=== PATIENT | male | born 1955 | race Caucasian/White ===

== ENCOUNTER 2021-05-26 08:51 | Outpatient (CLI) | payer OTHER, SELFPAY ==
--- NOTE | ~2021-05-26 | CT_ITS ---
EXAMINATION: CT LE RT wo con DATE: 05/26/2021 09:18 INDICATION: Unilateral primary osteoarthritis of the right knee TECHNIQUE: High resolution computed tomography (CT) of the right lower extremity from the hip through the ankle was performed without intravenous contrast. Additional sagittal and coronal reconstruction s were performed. Automated exposure control and iterative reconstruction technique were employed. Th e dose-length product was 1851.50 mGy-cm. COMPARISON: None FINDINGS: Alignment is normal. No fracture. Mild right hip osteoarthritis with small marginal osteophytes and m ild subarticular cystic change along the lateral rim of the acetabulum. There is cystic change at the anterosuperior right femoral head neck junction where there is decreased offset which can be seen in the setting of cam-type femoral acetabular impingement. Additional mild osteoarthritis at the tibiot alar and subtalar joints with subarticular cystic changes along the lateral rim of the talar dome. Severe osteoarthritis in the medial compartment of the right knee with subarticular sclerosis and sug gestion of early remodeling of the medial tibial plateau and weightbearing medial femoral condyle. Sm all marginal osteophytes about the lateral and patellofemoral compartments. Moderate-sized right knee joint effusion collecting primarily in the medial gutter of the suprapatellar pouch. Similar loose o steochondral body within a 6.1 x 3.5 x 1.8 cm Richardson's cyst. A couple additional loose osteochondral b odies measuring up to 11 mm in maximal diameter in the recess along the posterior margin of the poste rior cruciate ligament. There is an additional 2.6 x 2.3 x 1.1 cm ganglion cyst extending superiorly from the intercondylar notch to the deep aspect of the popliteal fossa. Multiple diverticula along the visualized sigmoid colon without adjacent from 3 change to suggest div erticulitis. No pathologically enlarged lymphadenopathy at the right groin or visualized right hemipe lvis. Postoperative change of prior right inguinal hernia repair. IMPRESSION: 1. Tricompartmental osteoarthritis at the right knee, severe in the medial compartment. Reviewed, dictated and finalized at location B. IMPRESSION: 1. Tricompartmental osteoarthritis at the right knee, severe in the medial comp artment.
== END 2021-05-26 08:52 | disposition home or self-care (01) ==
LOC: ANHIMG 08:59
PROVIDERS: Visit Provider Orthopaedic Surgery
DX: M17.11 Unilateral primary osteoarthritis, right knee (principal)
CPT/HCPCS: 73700

== ENCOUNTER 2021-06-05 09:29 | Outpatient (CLI) | payer OTHER, SELFPAY ==
--- NOTE | 2021-06-05 09:48 | ECG_ITS ---
Measurements Intervals [place] Rate: 70 P: 59 NM: 168 QRS: 5 QRSD: 98 T: 35 QT: 343 QTc: 372 Interpretive Statements SINUS RHYTHM NORMAL ECG NO PREVIOUS ECG AVAILABLE FOR COMPARISON Electronically Signed On 06-05-2021 16:56:16 CDT by Marcin Encarnacion M.D.
[2021-06-05 09:57] LABS: Hematocrit 44.2 % (42.0-52.0); Hemoglobin 15.1 g/dL (14.0-18.0)
[2021-06-05 10:06] LABS: Urine Cotinine NEGATIVE
[2021-06-05 10:10] LABS: Albumin Level 4.1 g/dL (3.5-5.1); Estimated Glomerular Filt Rate > 60; Glucose 105 mg/dL (65-110)
[2021-06-05 10:23] LABS: Hemoglobin A1C 5.8 % (<5.7)
== END 2021-06-05 09:30 | disposition home or self-care (01) ==
LOC: ANHLAB 09:32
PROVIDERS: Visit Provider Orthopaedic Surgery
DX: M17.11 Unilateral primary osteoarthritis, right knee (principal); Z01.818 Encounter for other preprocedural examination
CPT/HCPCS: 80307; 82040; 82565; 82947; 83036; 85014; 85018; 93005

== ENCOUNTER 2021-08-04 11:34 | Outpatient (CLI) | payer OTHER, SELFPAY ==
[2021-08-04 12:57] LABS: Basophils Percent Auto 0.5 % (0.2-1.2); Eosinophils Absolute Auto 0.1 K/mm3 (0-0.3); Eosinophils Percent Auto 2.5 % (0-4.4); Hematocrit 40.6 % (42.0-52.0); Hemoglobin 14.1 g/dL (14.0-18.0); Immature Granulocyte Absolute 0.01 K/mm3 (0.00-0.031); Immature Granulocyte Percent A 0.2 % (0-0.5); Lymphocytes Absolute Auto 1.81 K/mm3 (0.9-3.2); Lymphocytes Percent Auto 31.7 % (18.3-44.2); Mean Corpuscular HGB Conc 34.7 g/dl (32-36); Mean Corpuscular Hemoglobin 32.6 pg (26-34); Mean Platelet Volume 9.6 fl (7.4-10.4); Monocytes Absolute Auto 0.6 K/mm3 (0.1-0.6); Monocytes Percent Auto 10.3 % (2.6-8.5); Neutrophils Absolute Auto 3.1 K/mm3 (1.3-6.7); Neutrophils Percent Auto 54.8 % (45.5-73.1); Platelet Count Result 272 k/mm3 (150-375); Red Blood Count 4.32 M/mm3 (4.6-6.20); Red Cell Distribution Width 13.2 % (11.5-14.5); White Blood Count 5.7 K/mm3 (4.5-10.0)
[2021-08-04 13:10] LABS: Urine Cotinine NEGATIVE
[2021-08-04 13:11] LABS: Albumin Level 4.2 g/dL (3.5-5.1); Estimated Glomerular Filt Rate > 60; Glucose 97 mg/dL (65-110)
== END 2021-08-04 11:35 | disposition home or self-care (01) ==
PROVIDERS: Visit Provider Orthopaedic Surgery
DX: Z01.812 Encounter for preprocedural laboratory examination (principal); M17.11 Unilateral primary osteoarthritis, right knee; Z51.81 Encounter for therapeutic drug level monitoring; Z79.899 Other long term (current) drug therapy
CPT/HCPCS: 80307; 82040; 82565; 82947; 85025; 87081

== ENCOUNTER 2021-08-26 01:03 | Day surgery (SDC) | payer OTHER, SELFPAY ==
[2021-08-04 11:50] VITALS: BMI 26.2
--- NOTE | 2021-08-04 12:03 | PC.NURSE ---
Report to the Outpatient Waiting Room, entrance under the green pavilion located off [facility], at time __8:30AM on date ___08/26/21____. OR Time: __10:30AM . - You and your visitor will be asked a series of questions to screen for COVID 19 for your protection. - Only one visitor is allowed at this time. - The patient visitor is requested to leave or wait in car when not with patient. - A mask is required within the hospital. Patients may have clear liquids (water, carbonated beverages, clear teas, apple juice) until 3 hours prior to surgery with a maximum of 20 ounces. - No food from midnight until time of surgery - Infants may have breast milk until 4 hours before surgery, formula 6 hours prior to surgery. - Children will be allowed to drink immediately following surgery. If applicable, please bring a bottle or sippy cup to assist with drinking. Juice, water, soda, and popsicles are readily available. For infants on formula, please bring formula the day of surgery. Pacifiers are allowed. Take the following medications with a SIP of water the morning of surgery: ___NONE Medications to discontinue per physician ___HOLD IBUPROFEN 7 DAYS PRE-OP Date to take last dose____08/19/21 Please no make-up, nail yi, hairspray, perfume, deodorant, or body powder the day of surgery. No jewelry (including any body piercings) or valuables the day of surgery, leave them at home. Please take a shower or bath the night before, or the morning of, surgery with an antibacterial soap. Wear comfortable, loose fitting clothing. Children are encouraged to wear pajamas. - Jewelry must be removed prior to entering the operating room. Rings and piercings that are not removed may be cut off. - The hospital will not accept responsibility for valuables. - Please leave all valuables, including medications, at home the day of surgery. If you are going home after surgery, a licensed bull driver must drive you home. - NO public transportation without another adult. - We recommend that an adult stay with you for 24 hours following discharge. - We also recommend that you do not drive, make important decision, drink alcoholic beverages, or take any drugs that were not prescribed by your health care provider for at least 24 hours after your discharge time. For Pediatric surgeries, we recommend two adults accompany the child home (only one inside the building at this time). Follow any additional instructions given to you from your surgeon. If you or anyone in your household have experienced Covid symptoms in the past week, please notify your surgeon or the nurse liaison at the phone number below for possible testing. Telephone instructions given to __PATIENT and asked if any additional questions and then verbalized understanding. Patient advised to call surgeon office or pre surgery nurse liaison [phone] if any additional questions.
[2021-08-26] VITALS (12 sets, daily range): BP systolic 111–144; BP diastolic 70–97; PULSE 63–88; RESP 10–21; TEMP 36.3–37.1; O2SAT 95–99
--- NOTE | ~2021-08-26 | XR_ITS ---
EXAM: XR knee RT 2V DATE: 08/26/2021 13:49 HISTORY: RT TOTAL KNEE . COMPARISON: 04/23/2021. FINDINGS: Interval right knee total arthroplasty. Expected postsurgical changes in the soft tissues. Hardware in good position. No unexpected radiopaque foreign body. No osseous fracture. IMPRESSION: No radiographic evidence of procedure or hardware related complication. Reviewed, dictated and finalized at location K. IMPRESSION: No radiographic evidence of procedure or hardware related complicat ion.
--- NOTE | 2021-08-26 07:03 | WPDHPUPDATE1 ---
History and Physical Update Update Date/Time: 08/26/21 07:03 History and Physical has been reviewed, including an updated exam of the patient. There are NO changes in the patient's condition. Risks, benefits, and alternatives have been discussed and questions answered. Patient agrees to proceed with procedure.
[2021-08-26] MEDS: ACETAMINOPHEN 500 MG TABLET 1000 MG PO (08:30)
[2021-08-26] MEDS: LACTATED RINGERS 1,000 ML 30 ML IV CONT ×2 (08:42→13:18)
--- NOTE | 2021-08-26 08:43 | WPDANESEPPF ---
Anes - Initial Pre Proc Eval Procedure: Operation Date: 08/26/21 10:30 Proposed Procedures p Right Custom Total Knee Arthroplasty - Alton Frey MD Date/Time: 08/26/21 08:43 Surgeon: Alton Frey MD Pre Op Diagnosis: primary OA right knee Patient Data Age: 66 Gender: M Height: 1.88 m Weight: 92.7 kg Allergies Allergy/AdvReac Type Severity Reaction Status Date / Time atorvastatin AdvReac Unknown Muscle & Verified 08/26/21 08:23 joint pain Home Medications Medication Instructions Recorded Confirmed Type ibuprofen 200 mg capsule 400 mg PO Q6H PRN Pain 08/04/21 08/26/21 History ECG: Date of Service: 06/05/21 Procedure(s): CA 12 lead EKG Accession Number(s): [id number] cc: ~ ? Measurements Intervals? [place]? Rate: ? 70 ? P:? 59 ME: ? 168? QRS:? 5 QRSD: ? 98 ? T:? 35 QT: ? 343? QTc:? 372? Interpretive Statements SINUS RHYTHM NORMAL ECG NO PREVIOUS ECG AVAILABLE FOR COMPARISON Electronically Signed On 06-05-2021 16:56:16 CDT by Marcin Encarnacion M.D. Patient hx anesthesia problems: none Family hx anesthesia problems: none Results Review: All pre-operative results and documents have been reviewed as part of the pre-operative evaluation. [facility] Past Medical History Medical History (Updated 08/26/21 @ 08:44 by Eliel Jones MD) Bilateral primary osteoarthritis of knee Chronic GERD Former smoker Hyperlipidemia Surgical History Surgical History History of hernia surgery (~07/2017) History of sinus surgery (~07/2014) Family History Family History Mother Patient's mother is in good health Father Patient's father is in good health Sibling Patient's sister is in good health Other Family history of allergic disorder Family history of malignant neoplasm Social History Social History Smoking packs per day: 1 Smoking cigarettes per day: 20.0 Years smoked: 15 Smoking pack-years: 15.00 Smoking status: Former smoker Tobacco type: cigarettes Smoking end date: 08/23/91 Alcohol intake: current Drinks per week: 6 Substance use: never Living arrangements: with family Additional living arrangements comments: SPOUSE Spiritual care concerns: No Anes - Eval Final PreProcedure Day of Procedure 08/26/21 08:43 Patient weight: normal Heart: regular rate and rhythm Lungs: clear to auscultation and normal air movement Airway: Mallampati scale class II Neurological: alert and oriented Last oral intake: >/= 8 hours ASA classification: II Emergent: no Anesthetic plan: proceed Anesthesia type and monitoring: general LMA Results Review: All pre-operative results and documents have been reviewed as part of the pre-operative evaluation. Informed Consent: The patient's anesthetic plan and its attendant risks and benefits were discussed with the patient/family/POA. Questions were solicited and answers provided to the satisfaction of the patient/family/POA.
[2021-08-26] MEDS: TRANEXAMIC ACID 1,000MG/ISO100 1,000 MG/100 ML BAG 200 MG IVPB (09:40)
[2021-08-26] MEDS: ceFAZolin 2 GM/D5W 50 ML 2 GM/50 ML BAG IVPB ×2 (10:37→18:13)
--- NOTE | 2021-08-26 10:37 | WPDANESPNB ---
Anes - Peripheral Nerve Block Date/Time: 08/26/21 10:37 I have discussed with the patient/family/POA the placement of a peripheral nerve block for post-operative pain management, including associated risks, benefits, complications, and side effects. Alternative methods of post-operative analgesia were detailed. Questions were solicited and answers provided to the satisfaction of the patient/family/POA. Time-Out: A pre-procedural Time-Out was completed immediately before starting the procedure and confirmed: Patient Identification, Site, Procedure, Patient Position and the Availability of Requisite Equipment. Clinical Indications: Acute post-operative pain management requested by the operative surgeon. Nerve Block Insertion Note Anes-nerve block: adductor canal Patient position: supine Skin prep: chlorhexidine Needle: 22 gauge, stimulating, insulated echogenic needle. Needle length: 80 mm Technique: ultrasound Technique comment: in plane Injectate: bupivacaine 0.5% with epi 5 mcg/ml (30cc) Observations: tolerated well Complications: none Procedure start time:: 1025 Procedure end time:: 1030
[2021-08-26] MEDS: fentaNYL CITRATE INJ (*CRX) 100 MCG/2 ML VIAL 25 MCG IV PUSH ×8 (13:50→14:51)
--- NOTE | 2021-08-26 14:05 | SUR.PHASEI ---
1345 PORTABLE XRAY OF RIGHT KNEE DONE.
[2021-08-26] MEDS: oxyCODONE HCL (*CRX) 5 MG TAB IR PO (15:32)
[2021-08-26] MEDS: SODIUM CHLORIDE 0.9% IV 1,000 ML 125 ML IV CONT (15:33)
[2021-08-26] MEDS: ASPIRIN 81 MG ENTERIC TABLET PO (17:32)
[2021-08-26] MEDS: SENNA/DOCUSATE SODIUM TABLET 2 TAB PO (17:32)
--- NOTE | 2021-08-26 17:39 | ADMGEN ---
This patient, Usman Finney, was admitted to Medical Room 257-01. Patient/family oriented to hospital policies and general routines including ID bracelet, bed and alarms, visiting hours, pain management, procedures, bathroom and other care routines, personal items, smoking policy, room service/diet, and visiting hours. Information on how to activate the Rapid Response Team has been discussed. Patient/Family are encouraged to report perceived risks to care and to ask questions if they do not understand what they are told or what they should do.
[2021-08-26] MEDS: oxyCODONE HCL (*CRX) 5 MG TAB IR 10 MG PO (19:48)
[2021-08-26] MEDS: FAMOTIDINE 20 MG TABLET PO (19:49)
[2021-08-27 00:29] VITALS: BP 107/55; PULSE 83; RESP 20; TEMP 36.5; O2SAT 95
[2021-08-27] MEDS: ceFAZolin 2 GM/D5W 50 ML 2 GM/50 ML BAG IVPB ×2 (02:00→10:38)
[2021-08-27 04:24] VITALS: BP 112/60; PULSE 61; RESP 18; TEMP 36.7; O2SAT 96
[2021-08-27] MEDS: FAMOTIDINE 20 MG TABLET PO (08:15)
[2021-08-27] MEDS: ASPIRIN 81 MG ENTERIC TABLET PO (08:16)
[2021-08-27] MEDS: polyethylene glycoL 3350 17 GM POWD.PACK PO (08:16)
[2021-08-27] MEDS: SENNA/DOCUSATE SODIUM TABLET 2 TAB PO (08:16)
[2021-08-27] MEDS: predniSONE 5 MG TABLET PO (08:16)
[2021-08-27 09:48] VITALS: BP 115/64; PULSE 64; RESP 16; TEMP 36.3; O2SAT 96
--- NOTE | 2021-08-27 10:12 | P.OP_ITS ---
Procedure Note - Detailed Date of Procedure 08/26/21 Pre-op Diagnosis primary OA right knee Post-op Diagnosis Same Procedure Performed Total knee arthroplasty Surgeon Alton Frey MD Aviation Support Equipment Repairer Gavi Covarrubias PA-C Anesthesia General and Regional (Subsartorial block.) Findings Custom TKA. Excellent bone quality. Severe varus with constitutional varus. Medial tibial erosion. Minus two tibial cut. Moderate to large medial release. Asymmetric tibial polyethylene. Description of Procedure Preoperative antibiotics were given. The limb was prepped and draped in the usual sterile fashion with a well-padded tourniquet high on the thigh. The limb was exsanguinated and the tourniquet inflated to 300 mmHg. A longitudinal incision was created just medial to the patella. A trivector approach to the knee was performed. Arthrotomy was taken down through the joint capsule. No significant releases were initially taken. The femur was exposed and the F1 jig was applied. The coring tool was used to remove the cartilage for the F2 jig to sit flush with the bone. The jig was pinned and the distal cut carefully taken. Caliper measurements confirmed appropriate bony resections according to the preoperative templated plan. The F4 cutting jig for the femur was applied, at the standard rotation. The AP and anterior chamfer cuts were taken. The F5 jig was applied and the posterior chamfer cuts were taken. The tibia was prepared using the T1 jig, after removing cartilage for the jig contact points. Proper alignment was checked with the alignment ángel. The tibia was cut using the T1u guide. Gap balancing was performed. Gap measurements were taken and the knee was trialed. Excellent alignment and soft tissue balancing was confirmed. The posterior cruciate ligament was recessed along the proximal tibia. Meniscal remnants were removed. The trial components were assembled. Excellent range of motion and proper soft tissue balancing were confirmed throughout the full range of motion. Patellar tracking was excellent. The knee was copiously irrigated periodically throughout the procedure. The real implants were cemented into position. Excess cement was carefully removed. The wound was closed in layers with interrupted #1 Vicryl suture, 2-0 strata fix suture, 0 strata fix suture, 2-0 strata fix suture. Steri-Strips placed on the skin with the knee flexed. Sterile bulky dressing applied. The patient was brought to the recovery room in stable condition. There were no complications. Physician personalized living assistant, Gavi Covarrubias PA-C, required for surgery; including patient positioning, draping, tissue retraction, maintaining instrument position, cement removal, wound closure, and dressing placement. Implants Conformis Custom total knee arthroplasty. Cemented. Cruciate retaining. 6D insert. Estimated Blood Loss -100.0 Urine Output 600 Drains No Packing No Pathology None sent Complications No immediate complications Condition Stable Disposition PACU [facility] Billing Surgery - Charge Forward: Surgery Billing
--- NOTE | 2021-08-27 10:27 | WPDANESPN ---
Anes - Prog Note Post-Op Date/Time: 08/27/21 10:27 Cardiovascular status: normal Respiratory status: normal Airway patency: baseline Mental status: baseline Post-Op hydration status: normal Vital Signs: Last Vital Signs Temp 36.3 C L 08/27/21 09:48 Pulse 64 08/27/21 09:48 Resp 16 08/27/21 09:48 BP 115/64 08/27/21 09:48 Pulse Ox 96 08/27/21 09:48 O2 Del Method Room Air 08/27/21 08:00 O2 Flow Rate 8 08/26/21 13:45 Pain Score (VAS): 0 I/O: Intake & Output 08/26/21 08/27/21 08/27/21 23:59 07:59 15:59 Intake Total 1040 540 360 Output Total 600 600 Balance 1040 -60 -240 Post-procedural complaints: none Patient Feedback: Patient satisfied with anesthetic care.
[2021-08-27] MEDS: IBUPROFEN 200 MG TABLET 400 MG PO (10:37)
--- NOTE | 2021-08-27 14:33 | PM.DS ---
DS: Admitting Diagnosis Discharge Date 08/27/21 Admitting Diagnosis Knee arthritis DS: Discharge Diagnosis Discharge Diagnosis (1) Status post total knee replacement, right: Code(s): Z96.651 - Presence of right artificial knee joint Status: Acute DS: Summary Hospital Course Reason for hospitalization: Total knee arthroplasty. Hospital Course: Tolerated surgery well. Progressed appropriately with therapy. Status at Discharge Functional status at discharge: uses cane/walker Overall status at discharge: patient is progressing back to baseline Time Spent with Patient Time attestation: Total time spent providing and/or coordinating discharge services: Exam Const: General: no acute distress Resp: Effort & Inspection: normal respiratory effort Skin: Other: Wound healing well. Mepilex dressing intact. No hematoma or drainage. Neuro: Motor exam (neuro): 5/5 motor strength present throughout Sensory Exam: normal sensation Psych: Mental Status: mental status grossly normal Speech and movement: Normal speech and movement present Discharge Plan Discharge Patient Disposition: Home, Self-Care Discharge Instructions: See instruction sheet. Stand Alone Forms: General Discharge Instructions Follow-up/Referrals: Alton Frey MD [Physician] - Discharge Medications: New aspirin [Enteric Coated Aspirin] 81 mg tablet,delayed release (DR/EC) 81 mg PO DAILY Qty: 28 0RF oxycodone-acetaminophen 5-325 mg tablet 1 - 2 tablet PO Q4-6H MDD 6 tablets PRN (Reason: pain) Qty: 30 0RF prednisone 5 mg tablet 5 mg PO DAILY Qty: 21 0RF Discontinued ibuprofen 200 mg Capsule 400 mg PO Q6H PRN (Reason: Pain) Quality VTE Prophylaxis VTE prophylaxis: mechanical ordered (LING etienne and [place])
== END 2021-08-27 14:30 | disposition home or self-care (01) ==
LOC: ANHSURGERY 08:06 → ANH2MED 14:56
PROVIDERS: Visit Provider Orthopaedic Surgery
PROC: (CPT 27447; principal; 2021-08-26 10:30)
DX: M17.11 Unilateral primary osteoarthritis, right knee (principal); G89.18 Other acute postprocedural pain; Z87.891 Personal history of nicotine dependence
CPT/HCPCS: 27447; 64447; 36415; 73560; 80307; 82040; 82565; 82947; 85025; 86850; 86900; 86901; 87081; 97110; 97116; 97161; 97165; A9270; C1713; C1776; J0131; J0171; J0690; J1100; J1885; J1940; J2250; J2270; J2405; J2704; J2795; J3010; J7030; J7120; J7512

== ENCOUNTER 2022-11-05 10:04 | Outpatient (CLI) | payer BC, SELFPAY ==
--- NOTE | 2022-11-05 10:06 | ECG_ITS ---
Measurements Intervals [place] Rate: 60 P: 46 [place]: 178 QRS: 11 QRSD: 93 T: 35 QT: 371 QTc: 371 Interpretive Statements SINUS RHYTHM BASELINE WANDER- I, II, AVR, AVF, V1 NORMAL ECG COMPARED TO ECG 06/05/2021 09:55:51 NO SIGNIFICANT CHANGES Electronically Signed On 11-05-2022 11:47:56 CDT by Kevyn Viveros D.O.
[2022-11-05 10:32] LABS: Hematocrit 41.2 % (42.0-52.0)
[2022-11-05 10:41] LABS: Albumin Level 4.1 g/dL (3.5-5.1); Estimated Glomerular Filt Rate > 60; Glucose 118 mg/dL (65-110)
[2022-11-05 10:58] LABS: Urine Cotinine NEGATIVE
[2022-11-05 11:01] LABS: Hemoglobin A1C 5.7 % (<5.7)
== END 2022-11-05 10:05 | disposition home or self-care (01) ==
LOC: ANHLAB 10:06
PROVIDERS: Visit Provider Orthopaedic Surgery
DX: M17.12 Unilateral primary osteoarthritis, left knee (principal); E78.5 Hyperlipidemia, unspecified; K21.9 Gastro-esophageal reflux disease without esophagitis; Z79.899 Other long term (current) drug therapy; Z01.818 Encounter for other preprocedural examination
CPT/HCPCS: 80307; 82040; 82565; 82947; 83036; 85014; 85018; 93005

== ENCOUNTER 2022-12-23 14:10 | Outpatient (CLI) | payer BC, SELFPAY ==
[2022-12-23 14:36] LABS: Urine Cotinine NEGATIVE
== END 2022-12-23 14:11 | disposition home or self-care (01) ==
PROVIDERS: Visit Provider Orthopaedic Surgery
DX: E78.5 Hyperlipidemia, unspecified (principal); K21.9 Gastro-esophageal reflux disease without esophagitis; M17.12 Unilateral primary osteoarthritis, left knee
CPT/HCPCS: 80307

== ENCOUNTER 2023-01-07 11:39 | Outpatient (CLI) | payer BC, SELFPAY ==
[2023-01-07 12:24] LABS: Basophils Percent Auto 0.5 % (0.2-1.2); Eosinophils Absolute Auto 0.1 K/mm3 (0-0.3); Eosinophils Percent Auto 1.6 % (0-4.4); Hematocrit 40.8 % (42.0-52.0); Hemoglobin 13.8 g/dL (14.0-18.0); Immature Granulocyte Absolute 0.01 K/mm3 (0.00-0.031); Immature Granulocyte Percent A 0.2 % (0-0.5); Lymphocytes Absolute Auto 1.51 K/mm3 (0.9-3.2); Lymphocytes Percent Auto 35.4 % (18.3-44.2); Mean Corpuscular HGB Conc 33.8 g/dl (32-36); Mean Corpuscular Volume 94.7 fl (80-100); Mean Platelet Volume 9.7 fl (7.4-10.4); Monocytes Absolute Auto 0.4 K/mm3 (0.1-0.6); Monocytes Percent Auto 10.1 % (2.6-8.5); Neutrophils Absolute Auto 2.2 K/mm3 (1.3-6.7); Neutrophils Percent Auto 52.2 % (45.5-73.1); Platelet Count Result 292 k/mm3 (150-375); Red Blood Count 4.31 M/mm3 (4.6-6.20); Red Cell Distribution Width 12.9 % (11.5-14.5); White Blood Count 4.3 K/mm3 (4.5-10.0)
[2023-01-07 12:35] LABS: Albumin Level 4.6 g/dL (3.5-5.1); Estimated Glomerular Filt Rate > 60
[2023-01-07 12:39] LABS: Glucose 114 mg/dL (65-110)
== END 2023-01-07 11:40 | disposition home or self-care (01) ==
LOC: ANHSURGERY 11:45
PROVIDERS: Visit Provider Orthopaedic Surgery
DX: M17.12 Unilateral primary osteoarthritis, left knee (principal); Z01.818 Encounter for other preprocedural examination
CPT/HCPCS: 36415; 82040; 82565; 82947; 85025; 86850; 86900; 86901; 87081

== ENCOUNTER 2023-01-11 01:49 | Day surgery (SDC) | payer BC, SELFPAY ==
--- NOTE | 2023-01-07 11:40 | PC.NURSE ---
PRE-OP INSTRUCTIONS, PLEASE READ CAREFULLY Report to the Outpatient Waiting Room, entrance under the green pavilion located off [facility], at time _1000_ on date _01/11/23_. Planned Procedure Time: _1200_. PACK A SMALL OVERNIGHT BAG AND LEAVE IN THE CAR ALONG WITH YOUR WALKER Time changes happen often and if your time is changed the preop area will call you the afternoon before. - You and your visitor will be asked to self-screen and do not enter if you have any COVID symptoms. - A mask is optional within the hospital at this time. -VISITING HOURS 8AM-8PM Patients may have clear liquids (water, carbonated beverages, clear teas, apple juice) until 3 hours prior to surgery (0900 AM) with a maximum of 20 ounces. - No food from midnight until time of surgery Take the following medications with a SIP of water the morning of surgery: _TYLENOL IF NEEDED_ DO NOT STOP ANY OF YOUR OTHER PRESCRIPTION MEDICATIONS PRIOR TO SURGERY ?EXCEPT THE FOLLOWING Medications to discontinue per physician ____NONE , Date to take last dose Please no make-up, nail faroese, hairspray, perfume, deodorant, or body powder the day of surgery. No jewelry (including any body piercings) or valuables the day of surgery, leave them at home. Please take a shower or bath the night before, or the morning of, surgery with an antibacterial soap. Wear comfortable, loose fitting clothing. - Jewelry must be removed prior to entering the operating room. Rings and piercings that are not removed may be cut off. - The hospital will not accept responsibility for valuables. - Please leave all valuables, including medications, at home the day of surgery. If you are going home after surgery, a licensed ambulette driver must drive you home. - NO public transportation without another adult if you receive anesthesia. - We recommend that an adult stay with you for 24 hours following discharge. - We also recommend that you do not drive, make important decision, drink alcoholic beverages, or take any drugs that were not prescribed by your health care provider for at least 24 hours after your discharge time. Follow any additional instructions given to you from your surgeon. If you or anyone in your household have experienced Covid symptoms in the past week, please notify your surgeon or the nurse liaison at the phone number below for possible testing. Instructions given to _PATIENT_and asked if any additional questions and then verbalized understanding. Patient advised to call surgeon office or pre surgery nurse liaison [phone] if any additional questions.
[2023-01-07 11:55] VITALS: BP 138/94; PULSE 82; RESP 20; TEMP 36.7; O2SAT 100; BMI 27.3
[2023-01-11] VITALS (12 sets, daily range): BP systolic 106–146; BP diastolic 69–98; PULSE 56–91; RESP 12–18; TEMP 36.1–36.6; O2SAT 93–99
--- NOTE | ~2023-01-11 | XR_ITS ---
EXAMINATION: [id number] DATE: 01/11/2023 15:46 FIBREGLASS LAMINATOR INDICATION: Left knee arthroplasty TECHNIQUE: 2 views left knee FINDINGS: There is a left total knee arthroplasty in expected position. Subcutaneous gas with fluid and air in the joint and overlying skin juanita are consistent with recent surgery. No evidence of pe riprosthetic fracture. IMPRESSION: 1. Recent left total knee arthroplasty. Reviewed, dictated and finalized at location B. EGLASS LAMINATOR
--- NOTE | 2023-01-11 10:28 | WPDANESEPPF ---
Anes - Initial Pre Proc Eval Procedure: Operation Date: 01/11/23 12:00 Proposed Procedures p Left Custom Total Knee Arthroplasty - Alton Frey MD Date/Time: 01/11/23 10:28 Surgeon: Alton Frey MD Pre Op Diagnosis: primary oa left knee Patient Data Age: 67 Gender: M Height: 1.83 m Weight: 90.7 kg Last Vital Signs Temp 36.7 C 01/07/23 11:55 Pulse 82 01/07/23 11:55 Resp 20 01/07/23 11:55 BP 138/94 H 01/07/23 11:55 Pulse Ox 100 01/07/23 11:55 O2 Del Method Room Air 01/07/23 11:55 Allergies Allergy/AdvReac Type Severity Reaction Status Date / Time atorvastatin AdvReac Unknown Muscle & Verified 01/11/23 10:20 joint pain Home Medications Medication Instructions Recorded Confirmed Type oxycodone-acetaminophen 5 mg-325 1 - 2 tablet PO Q4-6H PRN pain #40 01/06/23 01/11/23 Rx mg tablet (Percocet) tabs acetaminophen 325 mg tablet 650 mg PO QID PRN Pain 01/07/23 01/11/23 History (Tylenol) Patient hx anesthesia problems: none Family hx anesthesia problems: none Results Review: All pre-operative results and documents have been reviewed as part of the pre-operative evaluation. [facility] Past Medical History Medical History Bilateral primary osteoarthritis of knee Chronic GERD Former smoker Hyperlipidemia Surgical History Surgical History History of hernia surgery (~07/2017) History of sinus surgery (~07/2014) Status post total knee replacement, right Family History Family History Mother Patient's mother is in good health Father Patient's father is in good health Sibling Patient's sister is in good health Other Family history of allergic disorder Family history of malignant neoplasm Social History Social History Smoking packs per day: 1 Smoking cigarettes per day: 20.0 Years smoked: 15 Smoking pack-years: 15.00 Smoking status: Former smoker Tobacco type: cigarettes Second hand tobacco smoke exposure: No Smoking end date: 08/23/91 Additional smoking assessment comments: STATES SMOKES OCC CIGAR-LAST SMOKED 12/23/22 Alcohol intake: current Drinks per week: 6 Substance use: never Substance use type: does not use Lack of Transportation: No Lack of Food: Never True Current Housing: I Have Housing Concerned About Future Housing: No Difficulty Paying Gas/Electric Bills: No Difficulty Paying for Meds: No Currently Unemployed: No Education: Trade/Vocational Certificate Difficulty w/ Childcare or Family Care: No Living arrangements: with family Additional living arrangements comments: SPOUSE Spiritual care concerns: No Anes - Eval Final PreProcedure Day of Procedure 01/11/23 10:28 Patient weight: overweight Heart: regular rate and rhythm Lungs: clear to auscultation Airway: Mallampati scale class II Neurological: alert and oriented Last oral intake: >/= 8 hours ASA classification: II Emergent: no Anesthetic plan: proceed Anesthesia type and monitoring: general LMA and standard monitoring Results Review: All pre-operative results and documents have been reviewed as part of the pre-operative evaluation. Informed Consent: The patient's anesthetic plan and its attendant risks and benefits were discussed with the patient/family/POA. Questions were solicited and answers provided to the satisfaction of the patient/family/POA.
[2023-01-11] MEDS: ACETAMINOPHEN 500 MG TABLET 1000 MG PO ×2 (10:35→17:27)
--- NOTE | 2023-01-11 11:35 | WPDANESPNB ---
Anes - Peripheral Nerve Block Date/Time: 01/11/23 11:35 I have discussed with the patient/family/POA the placement of a peripheral nerve block for post-operative pain management, including associated risks, benefits, complications, and side effects. Alternative methods of post-operative analgesia were detailed. Questions were solicited and answers provided to the satisfaction of the patient/family/POA. Time-Out: A pre-procedural Time-Out was completed immediately before starting the procedure and confirmed: Patient Identification, Site, Procedure, Patient Position and the Availability of Requisite Equipment. Clinical Indications: Acute post-operative pain management requested by the operative surgeon. Nerve Block Insertion Note Anes-nerve block: adductor canal left Patient position: supine Skin prep: chlorhexidine Needle: 22 gauge, stimulating, insulated echogenic needle. Needle length: 80 mm Technique: ultrasound Injectate: bupivacaine 0.5% with epi 5 mcg/ml (30cc - no epi) Observations: tolerated well Complications: none Procedure start time:: 1556 Procedure end time:: 1600
--- NOTE | 2023-01-11 11:45 | SUR.PREOP ---
1135 PT INFORMED OF SURGERY TIME DELAY BY Jose WOODARD RN.
--- NOTE | 2023-01-11 12:09 | WPDHPUPDATE1 ---
History and Physical Update Update Date/Time: 01/11/23 12:09 History and Physical has been reviewed, including an updated exam of the patient. There are NO changes in the patient's condition. Risks, benefits, and alternatives have been discussed and questions answered. Patient agrees to proceed with procedure.
[2023-01-11] MEDS: ceFAZolin 2 GM/D5W 50 ML 2 GM/50 ML BAG IVPB ×2 (12:41→20:12)
[2023-01-11] MEDS: TRANEXAMIC ACID 1,000MG/ISO100 1,000 MG/100 ML BAG 200 MG IVPB (12:41)
[2023-01-11] MEDS: GENTAMICIN BONE CEMENT REFOBACIN 1 EACH TOPICAL (13:36)
--- NOTE | 2023-01-11 15:12 | P.OP_ITS ---
Procedure Note - Detailed Date of Procedure 01/11/23 Pre-op Diagnosis primary oa left knee Post-op Diagnosis Same Procedure Performed Total knee arthroplasty, left. Surgeon Alton Frey MD Product Development Coordinator Gavi Covarrubias PA-C Anesthesia General and Regional (Subsartorial block.) Findings Very large medial release required due to preoperative contracture, varus deformity, and varus thrust. Description of Procedure Preoperative antibiotics were given. The limb was prepped and draped in the usual sterile fashion with a well-padded tourniquet high on the thigh. The limb was exsanguinated and the tourniquet inflated to 300 mmHg. A longitudinal incision was created just medial to the patella. A trivector approach to the knee was performed. Arthrotomy was taken down through the joint capsule. Large medial release was initially taken. The femur was exposed and the F1 jig was applied. The coring tool was used to remove the cartilage for the F2 jig to sit flush with the bone. The jig was pinned and the distal cut carefully taken. Caliper measurements confirmed appropriate bony resections according to the preoperative templated plan. The F4 cutting jig for the femur was applied, at the standard rotation. The AP and anterior chamfer cuts were taken. The F5 jig was applied and the posterior chamfer cuts were taken. The tibia was prepared using the T1 jig, after removing cartilage for the jig contact points. Proper alignment was checked with the alignment ángel. The tibia was cut using the T1u guide. Gap balancing was performed. Gap measurements were taken and the knee was trialed. Additional medial release was performed including the semi tendinosis. Excellent alignment and soft tissue balancing was confirmed. The posterior cruciate ligament was recessed along the proximal tibia. The patella was cut for resurfacing. Three lug holes were drilled. Meniscal remnants were removed. The trial components were assembled. Excellent range of motion and proper soft tissue balancing were confirmed throughout the full range of motion. Patellar tracking was excellent. The knee was copiously irrigated periodically throughout the procedure. The real implants were cemented into position. Excess cement was carefully removed. The wound was closed in layers with interrupted #1 Vicryl suture, 0 strata fix suture, 2-0 strata fix suture, 3-0 strata fix suture. Steri-Strips placed on the skin with the knee flexed. Sterile bulky dressing applied. The patient was brought to the recovery room in stable condition. There were no complications. Physician registered nurse first assistant, Gavi Covarrubias PA-C, required for surgery; including patient positioning, draping, tissue retraction, maintaining instrument position, cement removal, wound closure, and dressing placement. Implants [employer] Imprint total knee arthroplasty. Cemented. Cruciate retaining. 8mm insert. Estimated Blood Loss 50 Drains No Complications No immediate complications Condition Stable Disposition PACU [facility] Billing Surgery - Charge Forward: Surgery Billing
[2023-01-11] MEDS: LACTATED RINGERS 1,000 ML 30 ML IV CONT ×2 (15:23)
[2023-01-11] MEDS: fentaNYL CITRATE INJ (*CRX) 100 MCG/2 ML VIAL 25 MCG IV PUSH ×7 (15:31→16:02)
[2023-01-11] MEDS: HYDROmorphone HCL INJ (*CRX) 1 MG/ML SYR 0.5 MG IV PUSH ×4 (16:11→16:35)
--- NOTE | 2023-01-11 17:18 | PC.NURSE ---
This patient, Usman Finney, was admitted to Medical Room 345-01. Patient/family oriented to hospital policies and general routines including ID bracelet, bed and alarms, visiting hours, pain management, procedures, bathroom and other care routines, personal items, smoking policy, room service/diet, and visiting hours. Information on how to activate the Rapid Response Team has been discussed. Patient/Family are encouraged to report perceived risks to care and to ask questions if they do not understand what they are told or what they should do.
[2023-01-11] MEDS: SENNA/DOCUSATE SODIUM TABLET 2 TAB PO (17:27)
[2023-01-11] MEDS: ASPIRIN 81 MG ENTERIC TABLET PO (17:27)
[2023-01-11] MEDS: oxyCODONE HCL (*CRX) 5 MG TAB IR 10 MG PO (17:30)
[2023-01-11] MEDS: ONDANSETRON INJ 4 MG/2 ML VIAL IV PUSH (20:12)
[2023-01-11] MEDS: FAMOTIDINE 20 MG TABLET PO (20:13)
[2023-01-12] MEDS: ACETAMINOPHEN 500 MG TABLET 1000 MG PO ×3 (00:45→12:17)
[2023-01-12] MEDS: ONDANSETRON INJ 4 MG/2 ML VIAL IV PUSH (01:04)
[2023-01-12 02:26] VITALS: BP 104/68; PULSE 55; RESP 20; TEMP 36.2; O2SAT 98
[2023-01-12] MEDS: ceFAZolin 2 GM/D5W 50 ML 2 GM/50 ML BAG IVPB ×2 (05:23→12:17)
[2023-01-12 05:52] LABS: Basophils Percent Auto 0.1 % (0.2-1.2); Hematocrit 34.9 % (42.0-52.0); Hemoglobin 11.5 g/dL (14.0-18.0); Immature Granulocyte Absolute 0.05 K/mm3 (0.00-0.031); Immature Granulocyte Percent A 0.4 % (0-0.5); Lymphocytes Absolute Auto 1.35 K/mm3 (0.9-3.2); Lymphocytes Percent Auto 11.7 % (18.3-44.2); Mean Corpuscular Hemoglobin 32.1 pg (26-34); Mean Corpuscular Volume 97.5 fl (80-100); Mean Platelet Volume 9.6 fl (7.4-10.4); Monocytes Absolute Auto 0.8 K/mm3 (0.1-0.6); Monocytes Percent Auto 7.2 % (2.6-8.5); Neutrophils Absolute Auto 9.3 K/mm3 (1.3-6.7); Neutrophils Percent Auto 80.6 % (45.5-73.1); Platelet Count Result 281 k/mm3 (150-375); Red Blood Count 3.58 M/mm3 (4.6-6.20); Red Cell Distribution Width 12.9 % (11.5-14.5); White Blood Count 11.6 K/mm3 (4.5-10.0)
[2023-01-12 06:04] LABS: Anion Gap 9 mmol/L (8-16); Blood Urea Nitrogen 14 mg/dL (9-20); Calcium 8.6 mg/dL (8.4-10.2); Carbon Dioxide 25 mmol/L (22-30); Chloride 101 mmol/L (98-107); Estimated CRCL calculation 88 ml/min; Estimated Glomerular Filt Rate > 60; Glucose 115 mg/dL (65-110); Potassium 4.2 mmol/L (3.4-5.0); Sodium 135 mmol/L (137-145)
[2023-01-12 06:26] VITALS: BP 108/63; PULSE 54; RESP 20; TEMP 36.6; O2SAT 99
[2023-01-12] MEDS: FAMOTIDINE 20 MG TABLET PO (08:28)
[2023-01-12] MEDS: ASPIRIN 81 MG ENTERIC TABLET PO (08:28)
[2023-01-12] MEDS: oxyCODONE HCL (*CRX) 5 MG TAB IR PO (08:28)
[2023-01-12] MEDS: SENNA/DOCUSATE SODIUM TABLET 2 TAB PO (08:28)
[2023-01-12] MEDS: polyethylene glycoL 3350 17 GM POWD.PACK PO (08:28)
--- NOTE | 2023-01-12 10:09 | PM.DS ---
DS: Admitting Diagnosis Discharge Date 01/12/23 Admitting Diagnosis OA knee Left DS: Discharge Diagnosis Discharge Diagnosis (1) Status post total left knee replacement: Code(s): Z96.652 - Presence of left artificial knee joint Status: Acute Assessment and Plan: Postop day 1: Left total knee arthroplasty. Patient tolerated procedure well. No complications. Pain manageable with pain medication. No numbness or tingling. We had a lengthy discussion regarding postoperative wound care, limitations, expectations, and exercises. Patient shows good understanding. He has had initial physical therapy and is tolerating it well. DVT prophylaxis: 81 mg baby aspirin b.i.d. for 14 days. Pain medication: Percocet. Patient has followup appointment with Dr. Frey in 3 weeks. DS: Summary Hospital Course Reason for hospitalization: Total knee arthroplasty Hospital Course: Patient tolerated procedure well. Has had initial PT/OT. Status at Discharge Functional status at discharge: uses cane/walker Overall status at discharge: patient is progressing back to baseline Time Spent with Patient Time attestation: Total time spent providing and/or coordinating discharge services: Exam Narrative: 67-year-old male. Resting comfortably in chair. Alert and oriented x3. No acute distress. Wearing compression socks bilaterally. Dressing intact with small area of dried bloody drainage on Mepilex. Moderate swelling. moderate ecchymosis medially. No erythema. No hematoma. Range of motion limited due to pain. Calf nontender. Neurologic status intact. No varicosities. Distal pulses palpable. DS: Data Data Completed and Pending Labs on day of discharge: Labs from last 24 hours 01/12/23 05:31 WBC 11.6 H RBC 3.58 L Hgb 11.5 L Hct 34.9 L MCV 97.5 MCH 32.1 MCHC 33.0 RDW 12.9 Plt Count 281 MPV 9.6 Immature Gran % (Auto) 0.4 Neut % (Auto) 80.6 H Lymph % (Auto) 11.7 L [place] % (Auto) 7.2 Eos % (Auto) 0.0 Baso % (Auto) 0.1 L Lymph # (Auto) 1.35 [place] # (Auto) 0.8 H Eos # (Auto) 0.0 Baso # (Auto) 0.0 Abs Immat Gran (auto) 0.05 H Absolute Neuts (auto) 9.3 H Absolute Nucleated RBC 0.0 Nucleated RBC % 0.0 Sodium 135 L Potassium 4.2 Chloride 101 Carbon Dioxide 25 Anion Gap 9 BUN 14 Creatinine 0.80 Estim Creat Clear Calc 88 Estimated GFR > 60 Glucose 115 H Calcium 8.6 Discharge Plan Discharge Patient Disposition: Home, Self-Care Discharge Instructions: See green instruction sheets Stand Alone Forms: General Discharge Instructions Follow-up/Referrals: Gavi Covarrubias PA [Physician Bobbin Stripper] - Discharge Medications: New oxycodone-acetaminophen 5-325 mg tablet 1 - 2 tablet PO Q4-6H MDD 6 PRN (Reason: pain) Qty: 30 0RF Continued acetaminophen [Tylenol] 325 mg Tablet 650 mg PO QID PRN (Reason: Pain) Discontinued oxycodone-acetaminophen [Percocet] 5-325 mg tablet 1 - 2 tablet PO Q4-6H PRN (Reason: pain) Qty: 40 0RF Patient Comments: PT STATES HAS NOT PICKED UP RX YET
[2023-01-12 12:22] VITALS: BP 113/78; PULSE 58; RESP 18; TEMP 36.9; O2SAT 100
== END 2023-01-12 13:45 | disposition home or self-care (01) ==
LOC: ANHSURGERY 11:54 → ANH3MED 16:53
PROVIDERS: Physician Assistant Surgical; Visit Provider Orthopaedic Surgery
PROC: (CPT 27447; principal; 2023-01-11 12:00)
DX: M17.12 Unilateral primary osteoarthritis, left knee (principal); K21.9 Gastro-esophageal reflux disease without esophagitis; E78.5 Hyperlipidemia, unspecified; G89.18 Other acute postprocedural pain; Z79.891 Long term (current) use of opiate analgesic; Z96.651 Presence of right artificial knee joint; Z87.891 Personal history of nicotine dependence; Z80.9 Family history of malignant neoplasm, unspecified
CPT/HCPCS: 64447; 27447; 36415; 73560; 80048; 85025; 97110; 97161; 97165; A9270; C1713; C1776; J0171; J0690; J1100; J1170; J1885; J2250; J2270; J2405; J2704; J2795; J3010; J7120

== ENCOUNTER 2023-02-26 12:15 | Outpatient (CLI) | payer BC, SELFPAY ==
--- NOTE | ~2023-02-26 | XR_ITS ---
Left Knee Technique: AP, lateral, and sunrise views were obtained. Clinical History: Postoperative Findings: No fracture or dislocation is seen. Left knee arthroplasty in place, without evidence of humphrey rdware complication. Also prepatellar soft tissue thickening. No joint effusion is seen. Impression: Left knee arthroplasty in place. Possible prepatellar soft tissue thickening. Reviewed, dictated and finalized at location M. ER OUT LEVELING MACHINE Impression: Left knee arthroplasty in place. Possible prepatellar soft tissue thickening.
== END 2023-02-26 12:16 | disposition home or self-care (01) ==
PROVIDERS: Visit Provider Orthopaedic Surgery
DX: Z47.89 Encounter for other orthopedic aftercare (principal)
CPT/HCPCS: 73564